=== PATIENT | male | born 1970 | race Two or more races ===

== ENCOUNTER 2019-08-03 08:47 | Emergency (ER) | payer MEDICAID ==
[~2019-08-03] VITALS: Ht 175.3 cm; Wt 83.9 kg
[2019-08-03 08:50] VITALS: BP 136/90
--- NOTE | 2019-08-03 09:09 | Emergency Room Report ---
History of Present Illness General Chief Complaint: Laceration Source: Patient Present Illness HPI 48 -year-old male presents with laceration to the left scalp that occurred 1 day prior to arrival, he endorses an achy pain no aggravating relieving factors mild severity intermittent, patient states he was closing the trunk and the edge of the trunk hit his head he had no LOC no nausea no vomiting no chest pain or shortness of breath patient presents for evaluation and laceration repair Allergies: Coded Allergies: No Known Allergies (Unverified , 08/03/19) Patient History Past Medical History: see triage record Social History: Reports: smoking Reviewed Nursing Documentation: PMH: Agreed; PSxH: Agreed Nursing Documentation-PMH Past Medical History: No Stated History Review of Systems All Other Systems: negative except mentioned in HPI Physical Exam Vital Signs Date Time Temp Pulse Resp B/P (MAP) Pulse Ox O2 Delivery O2 Flow Rate FiO2 08/03/19 08:50 98.1 72 18 136/90 (105) 96 Room Air Sp02 EP Interpretation: reviewed, normal General Appearance: well appearing, no apparent distress, alert Head: normocephalic, other - 3 cm laceration left parietal scalp Eyes: bilateral eye PERRL, bilateral eye EOMI ENT: uvula midline, moist mucus membranes Neck: supple, thyroid normal, supple/symm/no masses Respiratory: no respiratory distress, no retraction, no accessory muscle use Cardiovascular #1: no rub Musculoskeletal: normal inspection Neurologic: alert, oriented x3 Psychiatric: mood/affect normal Skin: no rash, warm/dry Procedures Laceration/Wound Repair Laceration/Wound Repair : Consent: Verbal Wound Location: head Wound's Depth, Shape: superficial Wound Length (cm): 3 Wound Explored: clean Irrigated w/ Saline (ccs): 100 Wound Repaired With: elsy Number of Sutures: 3 Patient Tolerated: Well Complications: None Medical Decision Making Diagnostic Impression: Primary Impression: Laceration of head Qualified Codes: S01.01XA - Laceration without foreign body of scalp, initial encounter Additional Impression: Closed head injury Qualified Codes: S09.90XA - Unspecified injury of head, initial encounter ER Course 48-year-old male not on any blood thinners presents with laceration to left head , elsy were placed, no indications for head CT no LOC mechanism minor TDAP given Last Vital Signs Date Time Temp Pulse Resp B/P (MAP) Pulse Ox O2 Delivery O2 Flow Rate FiO2 08/03/19 08:50 98.1 72 18 136/90 (105) 96 Room Air Disposition: HOME, SELF-CARE Condition: Stable Scripts No Active Prescriptions or Reported Meds Referrals: [facility] Patient Instructions: Laceration Care, Adult Additional Instructions: The patient was provided with discharge instructions, notified to follow-up with a primary care doctor and or specialist in the next 24-48 hours, and to return to the ED if they have worsening of their symptoms. Please note that this report is being documented using Dot[employer] technology. This can lead to erroneous entry secondary to incorrect interpretation by the dictating instrument. ELSY TO BE REMOVED 08/13/2019 PLUS OR MINUS 1 OR 2 DAYS Sy Mcmanus MD Aug 03, 2019 09:09
[2019-08-03] MEDS ORDERED: Tetanus/Diptheria/Pertussis IM ONE (09:15)
--- NOTE | 2019-08-03 09:27 | NUR ---
ED Nurse Note: Patient taken to bed 8 from triage, Wound present to scalp. Length 3 cm. No active bleed, no redness, swelling or discharge. No reported LOC. Wound sustained from trunk of car hitting the head yesterday, patient reports minimal bleeding but some bleeding at time of injury though minimal. Small amount of dried blood present to wound. No report of headache. Reports wound is tender if touched. Otherwise pain free.
--- NOTE | 2019-08-04 12:05 | NUR ---
ER DISCHARGE NOTE: Written in retrospect re discharge at 09.35 08/03/2019 Patient is cleared to be discharged per ERMD, pt is aox4, on room air, with stable vital signs. pt was given dc instructions, pt was able to verbalize understanding, pt id band removed without complications. pt is able to ambulate with steady gait. pt took all belongings. Patient has elsy insitu to head wound. No active beled at time of discharge. No report of headache. Patient will see PCP for follow up and removal of elsy as per discharge paperwork and verbal instruction given to patient.
== END 2019-08-03 09:30 | disposition home or self-care (01) ==
LOC: EMR 09:15
DX: S01.01XA Laceration without foreign body of scalp, initial encounter (principal); Z23 Encounter for immunization; F17.200 Nicotine dependence, unspecified, uncomplicated; W22.8XXA Striking against or struck by other objects, initial encounter; Y92.810 Car as the place of occurrence of the external cause
CPT/HCPCS: 12002; 90471; 90715; 99283; Z7502

== ENCOUNTER 2019-08-12 15:40 | Emergency (ER) | payer MEDICAID ==
[~2019-08-12] VITALS: Ht 175.3 cm; Wt 79.4 kg
--- NOTE | 2019-08-12 15:45 | NUR ---
ED Nurse Note: Juan Ramon walked into ED c/o staple removal, patient was jsut seen here on 08/03/19 to which they placed 3 elsy on his upper head, patient complains of no pain at this time, site is not reddened. will wait for further orders
[2019-08-12 15:50] VITALS: BP 123/71
--- NOTE | 2019-08-12 16:10 | Emergency Room Report ---
History of Present Illness General Chief Complaint: Wound Recheck/Suture Removal Source: Patient Present Illness HPI 48-year-old male with no significant past medical history here requesting staple removal from his scalp. Patient had 3 elsy placed in his ago at [place] ER denies any headache and dizziness. Denies fever and chills, pus drainage from the site of wound. Denies any new injury. Allergies: Coded Allergies: No Known Allergies (Unverified , 08/03/19) Patient History Past Medical History: see triage record Past Surgical History: unable to obtain Pertinent Family History: none Immunizations: UTD Reviewed Nursing Documentation: PMH: Agreed; PSxH: Agreed Nursing Documentation-PMH Past Medical History: No Stated History Review of Systems All Other Systems: negative except mentioned in HPI Physical Exam Vital Signs Date Time Temp Pulse Resp B/P (MAP) Pulse Ox O2 Delivery O2 Flow Rate FiO2 08/12/19 15:43 99.1 84 18 123/71 (88) 94 Room Air Sp02 EP Interpretation: reviewed, normal General Appearance: no apparent distress, alert, GCS 15, non-toxic Head: normocephalic, atraumatic, other - Healed wound and 3 elsy placed in the left frontal Eyes: bilateral eye normal inspection, bilateral eye PERRL ENT: hearing grossly normal, normal pharynx, no angioedema, normal voice Neck: full range of motion, supple/symm/no masses Respiratory: chest non-tender, lungs clear, normal breath sounds, speaking full sentences Cardiovascular #1: regular rate, rhythm, no edema, no murmur Gastrointestinal: normal bowel sounds, non tender, soft, non-distended, no guarding, no rebound Rectal: deferred Genitourinary: normal inspection, no CVA tenderness Musculoskeletal: back normal, gait/station normal, normal range of motion, non- tender Neurologic: alert, oriented x3, responsive, motor strength/tone normal, sensory intact, speech normal Psychiatric: judgement/insight normal, memory normal, mood/affect normal, no suicidal/homicidal ideation Skin: no rash Lymphatic: normal inspection, no adenopathy Procedures Additional Procedure Procedure Narrative 3 elsy were removed from left frontal lobe without complications Medical Decision Making Diagnostic Impression: Primary Impression: Encounter for removal of sutures ER Course 48-year-old male with no significant past medical history here requesting staple removal from his scalp. Patient had 3 elsy placed in his ago at [place] ER denies any headache and dizziness. Denies fever and chills, pus drainage from the site of wound. Denies any new injury. Ddx considered but are not limited to : Superficial laceration, deep laceration , tendon involvement with laceration, laceration with foreign body Vital signs: are WNL, pt. is afebrile H&PE are most consistent with: Encounter for suture removal without complication ORDERS: None ED INTERVENTIONS: Suture removal DISCHARGE: At this time pt. is stable for d/c to home. Will provide printed patient care instructions, and any necessary prescriptions. Care plan and follow up instructions have been discussed with the patient prior to discharge. Last Vital Signs Date Time Temp Pulse Resp B/P (MAP) Pulse Ox O2 Delivery O2 Flow Rate FiO2 08/12/19 15:50 99.1 73 18 123/71 94 Room Air Disposition: HOME, SELF-CARE Condition: Stable Scripts No Active Prescriptions or Reported Meds Patient Instructions: Wound Check Rom Quinteros Aug 12, 2019 16:10
[2019-08-12 16:15] VITALS: BP 125/70
--- NOTE | 2019-08-12 16:15 | NUR ---
ER DISCHARGE NOTE: Patient is cleared to be discharged per ERMD, pt is aox4, on room air, with stable vital signs. pt was given dc nstructions, pt was able to verbalize understanding, pt id band removed without complications. pt is able to ambulate with steady gait. pt took all belongings.
== END 2019-08-12 16:15 | disposition home or self-care (01) ==
LOC: EMR 16:08
DX: Z48.02 Encounter for removal of sutures (principal)
CPT/HCPCS: 99282

== ENCOUNTER 2020-01-26 13:19 | Outpatient (CLI) | payer MEDICAID ==
--- NOTE | 2020-01-26 18:15 | Consultation ---
DATE OF CONSULTATION: 01/26/2020 CHIEF COMPLAINT: Referral for screening colonoscopy and chronic GERD. PAST MEDICAL HISTORY: GERD. PAST SURGICAL HISTORY: None. MEDICATIONS: Vitamin C. FAMILY HISTORY: Father had no problem but mother had pancreatic cancer. SOCIAL HISTORY: The patient smokes about 1 to 2 cigarettes per day. He also drinks socially. ALLERGIES: No known allergies. REVIEW OF SYSTEMS: Except for gastroesophageal reflux disease was negative. PHYSICAL EXAMINATION: GENERAL: The patient is well-developed male, in no acute distress. VITAL SIGNS: Stable. HEENT: Normocephalic and atraumatic. Sclerae anicteric. NECK: Supple. No evidence of obvious lymphadenopathy. CARDIOVASCULAR: Regular rate and rhythm. Plus S1, S2. LUNGS: Clear to auscultation bilaterally. ABDOMEN: Positive bowel sounds. Soft and nontender. No rebound. No guarding. No peritoneal sign. EXTREMITIES: No cyanosis. No clubbing. No edema. ASSESSMENT AND PLAN: This is a 49-year-old male with need for screening colonoscopy, also complained of chronic gastroesophageal reflux disease, so plan to do endoscopy and colonoscopy. The patient was given the prescription for the prep, risks and benefits of procedure was explained to him, pending authorization. Zaid Castorena M.D. DR: Christie JOB#: [id number] CC:
--- NOTE | 2020-01-26 19:15 | Consultation ---
DATE OF CONSULTATION: 01/26/2020 CHIEF COMPLAINT: Abdominal pain, referral for screening colonoscopy. HISTORY OF PRESENT ILLNESS: The patient is a 49-year-old male was referred to us for screening colonoscopy, also having chronic GERD and wants endoscopy. PAST MEDICAL HISTORY: None. PAST SURGICAL HISTORY: None. MEDICATIONS: Vitamin C. FAMILY HISTORY: Mother had pancreatic cancer. SOCIAL HISTORY: The patient smokes about 1 or 2 cigarettes per day. Drinks socially. No IV drug abuse. ALLERGIES: No known DRUG allergies. REVIEW OF SYSTEMS: Negative except for chronic GERD. PHYSICAL EXAMINATION: GENERAL: A well-developed male, in no acute distress. HEENT: Normocephalic and atraumatic. Sclerae anicteric. NECK: Supple. No evidence of obvious lymphadenopathy. CARDIOVASCULAR: Regular rate and rhythm. Plus S1, S2. LUNGS: Clear to auscultation bilaterally. ABDOMEN: Positive bowel sounds. Soft and nontender. No rebound. No guarding. No peritoneal sign. EXTREMITIES: No cyanosis. No clubbing. No edema ASSESSMENT AND PLAN: This is a 49-year-old male with need for screening colonoscopy, also has chronic gastroesophageal reflux disease, needs endoscopy. Plan to do endoscopy, colonoscopy when authorization is obtained. The patient was given the prep today and we will schedule when authorization is obtained. Zaid Castorena M.D. DR: Christie JOB#: [id number] CC:
== END 2020-01-26 15:19 | disposition home or self-care (01) ==
LOC: PAN 13:19
DX: R10.9 Unspecified abdominal pain (principal); K21.9 Gastro-esophageal reflux disease without esophagitis; F17.210 Nicotine dependence, cigarettes, uncomplicated
CPT/HCPCS: G0463

== ENCOUNTER 2020-06-21 13:01 | Outpatient (CLI) | payer MEDICAID ==
--- NOTE | 2020-06-21 15:29 | General Progress Note ---
Assessment/Plan Assessment/Plan: s/p eGD and colonoscopy HP gastrtis will treat RTC 3 months Subjective ROS Limited/Unobtainable: Yes Allergies: Coded Allergies: No Known Allergies (Unverified , 08/03/19) Objective General Appearance: alert EENT: normal ENT inspection Neck: supple Cardiovascular: normal rate Respiratory/Chest: decreased breath sounds Abdomen: normal bowel sounds, non tender, soft Extremities: non-tender Zaid Castorena MD Jun 21, 2020 15:29
== END 2020-06-21 15:01 | disposition home or self-care (01) ==
LOC: PAN 13:01
DX: K29.70 Gastritis, unspecified, without bleeding (principal); B96.81 Helicobacter pylori [H. pylori] as the cause of diseases classified elsewhere
CPT/HCPCS: 99212